=== PATIENT | female | born 1935 | race Caucasian/White ===

== ENCOUNTER → 2016-04-30 | Outpatient (CLI) | payer OTHER ==
[~2016-04-30] MED LIST: BIMA0.01 OP; CALC-51; CARB0.5D8; HYDR12.56 PO; LEVO-217; LOSA50TA54 PO; LUTE15CA; MONT1TAB3 PO; POLY150C4; SERT1TAB71 PO; SIMV10TA2 PO; UNKNOWN BP MED; ZOLP5TAB PO
--- NOTE | 2016-04-30 14:55 | MAMMOGRAPHY REPORT ---
BILATERAL DIGITAL SCREENING MAMMOGRAM WITH CAD: 04/30/2016 CLINICAL HISTORY: Routine screening. Patient has no complaints. TECHNIQUE: Bilateral CC and MLO views were obtained. Current study was also evaluated with a Comput er Aided Detection (CAD) system. COMPARISON: Comparison is made to exams dated: 04/27/2015 mammogram, 04/17/2013 mammogram, 04/26/2014 m ammogram, 04/07/2012 mammogram, 10/08/2011 mammogram, and 04/11/2011 mammogram - [facility]. BREAST COMPOSITION: There are scattered areas of fibroglandular density in both breasts. FINDINGS: There is stable focal asymmetry in the upper outer posterior right breast. Minimal vascul ar calcification in the breasts. No suspicious mass, architectural distortion or cluster of microca lcifications is seen. IMPRESSION: ACR BI-RADS CATEGORY 1: NEGATIVE There is no mammographic evidence of malignancy. A 1 year screening mammogram is recommended. The p atient will receive written notification of the results. Approximately 10% of breast cancers are not detected with mammography. A negative mammographic repor t should not delay biopsy if a clinically suggestive mass is present. Marian Reilly M.D. ay/:04/30/2016 13:02:20 [facility] Director: Domitila ENCARNACION(R)(M), [facility] letter sent: Normal 1/2 BI-RADS Code: ACR BI-RADS Category 1: Negative
== END | disposition home or self-care (01) ==
LOC: C.MAMM 11:13
PROVIDERS: ATTEND Internal Medicine
DX: Z12.31 Encounter for screening mammogram for malignant neoplasm of breast (principal)

== ENCOUNTER → 2016-06-12 | Outpatient (CLI) | payer OTHER ==
[2016-06-12 16:12] LABS: ALT/SGPT 23 U/L (12-78); BLOOD UREA NITROGEN 23 mg/dl (7-18); BUN/CREATININE RATIO 28.3 (10-20); CALCIUM 9.1 mg/dl (8.5-10.1); CARBON DIOXIDE 27 mmol/L (21-32); CHLORIDE 101 mmol/L (98-107); CHOLESTEROL 197 mg/dl (0-200); CREATININE 0.82 mg/dl (0.60-1.20); GLUCOSE 94 mg/dl (70-99); POTASSIUM 3.9 mmol/L (3.5-5.1); SODIUM 138 mmol/L (136-145); TRIGLYCERIDES 257 mg/dl (0-150); VERY LOW DENSITY LIPOPROT CALC 51 mg/dl
[2016-06-12 16:22] LABS: ALKALINE PHOSPHATASE 76 U/L (45-117); AST/SGOT 16 U/L (15-37); CHOLESTEROL/HDL RATIO 2.1; HDL CHOLESTEROL 92 mg/dl; LDL CHOLESTEROL CALCULATED 54 mg/dl; THYROID STIMULATING HORMONE 0.261 uIu/ml (0.300-4.500)
== END | disposition home or self-care (01) ==
LOC: C.LAB1850 14:57
PROVIDERS: ATTEND Internal Medicine
DX: E78.5 Hyperlipidemia, unspecified (principal); E03.9 Hypothyroidism, unspecified

== ENCOUNTER → 2016-07-18 | Outpatient (CLI) | payer OTHER | END | disposition home or self-care (01) | LOC: C.PAPS 10:11 | PROVIDERS: ATTEND Obstetrics & Gynecology | DX: Z12.4 Encounter for screening for malignant neoplasm of cervix (principal) ==

== ENCOUNTER → 2016-07-30 | Outpatient (CLI) | payer OTHER ==
[2016-07-30 14:39] LABS: BASO % 0.5 %; BASO ABS # 0.03 K/uL (0-0.2); COMPLETE YES; EOS % 3.8 %; HEMATOCRIT 40.8 % (37-47); IG% 0.2 %; LYMPH % 27.7 %; LYMPH ABS # 1.74 K/uL (1.2-3.4); MEAN CELL VOLUME 86.8 fL (80-100); MEAN CORPUSCULAR HEMOGLOBIN 30.4 pg (25-34); MEAN PLATELET VOLUME 10.8 fL (7.4-10.4); MONO % 7.2 %; NEUT % 60.6 %; PLATELET COUNT 242 K/uL (130-400); WHITE BLOOD COUNT 6.28 K/uL (4.8-10.8)
== END | disposition home or self-care (01) ==
LOC: C.LAB1850 13:07
PROVIDERS: ATTEND Internal Medicine
DX: E03.9 Hypothyroidism, unspecified (principal)

== ENCOUNTER → 2017-03-12 | Outpatient (CLI) | payer OTHER ==
[2017-03-12 17:50] LABS: ALT/SGPT 20 U/L (12-78); BLOOD UREA NITROGEN 23 mg/dl (7-18); BUN/CREATININE RATIO 27.5 (10-20); CALCIUM 9.3 mg/dl (8.5-10.1); CARBON DIOXIDE 29 mmol/L (21-32); CHLORIDE 101 mmol/L (98-107); CREATININE 0.85 mg/dl (0.60-1.20); GLUCOSE 94 mg/dl (70-99); POTASSIUM 3.9 mmol/L (3.5-5.1); SODIUM 137 mmol/L (136-145)
[2017-03-12 17:53] LABS: ALKALINE PHOSPHATASE 67 U/L (45-117); AST/SGOT 15 U/L (15-37)
== END | disposition home or self-care (01) ==
LOC: C.LAB1850 16:42
PROVIDERS: ATTEND Internal Medicine
DX: I10 Essential (primary) hypertension (principal); M81.0 Age-related osteoporosis without current pathological fracture

== ENCOUNTER → 2017-04-23 | Outpatient (CLI) | payer OTHER ==
[~2017-04-23] MED LIST changes: +CALC-51 PO; +DORZ2SOL20 OP; +HYDR12.55 PO; +LEVO88TA3 PO; +LOSA100T65 PO; +LUTE15CA PO; +OXYC-90 PO; +POLY150C4 PO; +SIMV-150 PO; +SNG10 PO; +TIMO0.5S2 OP; +TRAM-10 PO; +ZOLP5TAB6 PO
== END | disposition home or self-care (01) ==
LOC: C.MAMM 12:25
PROVIDERS: ATTEND Internal Medicine
DX: M81.0 Age-related osteoporosis without current pathological fracture (principal); M85.89 Other specified disorders of bone density and structure, multiple sites

== ENCOUNTER → 2017-05-01 | Outpatient (CLI) | payer OTHER ==
[~2017-05-01] MED LIST changes: -CALC-51 PO; -DORZ2SOL20 OP; -HYDR12.55 PO; -LEVO88TA3 PO; -LOSA100T65 PO; -LUTE15CA PO; -OXYC-90 PO; -POLY150C4 PO; -SIMV-150 PO; -SNG10 PO; -TIMO0.5S2 OP; -TRAM-10 PO; -ZOLP5TAB6 PO
--- NOTE | 2017-05-01 15:31 | MAMMOGRAPHY REPORT ---
BILATERAL DIGITAL SCREENING MAMMOGRAM TOMOSYNTHESIS WITH CAD: 05/01/2017 CLINICAL HISTORY: Routine screening. Patient has no complaints. TECHNIQUE: Breast tomosynthesis in addition to standard 2D mammography was performed. Current study was also evaluated with a Computer Aided Detection (CAD) system. COMPARISON: Comparison is made to exams dated: 04/30/2016 mammogram, 04/27/2015 mammogram, 04/26/2014 mamm ogram, 04/17/2013 mammogram, 04/07/2012 mammogram, and 04/04/2011 mammogram - [facility]. BREAST COMPOSITION: There are scattered areas of fibroglandular density in both breasts. FINDINGS: There is stable asymmetry in the far superior right breast on the MLO view. Minimal vascul ar calcification bilaterally. No suspicious mass, architectural distortion or cluster of microcalcif ications is seen. IMPRESSION: ACR BI-RADS CATEGORY 1: NEGATIVE There is no mammographic evidence of malignancy. A 1 year screening mammogram is recommended. The pa tient will receive written notification of the results. Approximately 10% of breast cancers are not detected with mammography. A negative mammographic report should not delay biopsy if a clinically suggestive mass is present. Marian Reilly M.D. ay/:05/01/2017 14:10:29 Health And Safety Specialist: Domitila MARES)(Bill), [facility] letter sent: Normal 1/2 BI-RADS Code: ACR BI-RADS Category 1: Negative
== END | disposition home or self-care (01) ==
LOC: C.MAMM 13:17
PROVIDERS: ATTEND Internal Medicine
DX: Z12.31 Encounter for screening mammogram for malignant neoplasm of breast (principal)

== ENCOUNTER → 2017-08-07 | Outpatient (CLI) | payer OTHER ==
[2017-08-07 16:40] LABS: BASO % 0.3 %; BASO ABS # 0.02 K/uL (0-0.2); EOS % 3.1 %; EOS ABS # 0.19 K/uL (0-0.5); HEMATOCRIT 40.6 % (37-47); HEMOGLOBIN 14.4 g/dL (12.0-16.0); IG# 0.01 K/uL (0.00-0.02); LYMPH % 21.1 %; MEAN CELL VOLUME 87.9 fL (80-100); MEAN CORPUSCULAR HEMOGLOBIN 31.2 pg (25-34); MEAN CORPUSCULAR HGB CONC 35.5 g/dl (32-36); MEAN PLATELET VOLUME 10.7 fL (7.4-10.4); MONO % 4.4 %; MONO ABS # 0.27 K/uL (0.11-0.59); NEUT % 70.9 %; NEUT ABS # 4.36 K/uL (1.4-6.5); PLATELET COUNT 218 K/uL (130-400); RED CELL DISTRIBUTION WIDTH CV 13.4 % (11.5-14.5); RED CELL DISTRIBUTION WIDTH SD 43.1 fL (36.4-46.3); WHITE BLOOD COUNT 6.15 K/uL (4.8-10.8)
[2017-08-07 17:06] LABS: ALBUMIN 3.5 gm/dl (3.4-5.0); ALT/SGPT 23 U/L (12-78); AST/SGOT 17 U/L (15-37); BLOOD UREA NITROGEN 29 mg/dl (7-18); CARBON DIOXIDE 27 mmol/L (21-32); CREATININE 0.98 mg/dl (0.60-1.20); GLUCOSE 102 mg/dl (70-99); SODIUM 132 mmol/L (136-145)
[2017-08-07 17:17] LABS: ALKALINE PHOSPHATASE 75 U/L (45-117); TOTAL PROTEIN 7.1 gm/dl (6.4-8.2)
== END | disposition home or self-care (01) ==
LOC: C.LAB1850 16:01
PROVIDERS: ATTEND Internal Medicine
DX: I10 Essential (primary) hypertension (principal); E03.9 Hypothyroidism, unspecified

== ENCOUNTER → 2017-08-19 | Outpatient (CLI) | payer OTHER | END | disposition home or self-care (01) | LOC: C.LAB1850 14:54 | PROVIDERS: ATTEND Internal Medicine Rheumatology | DX: M85.80 Other specified disorders of bone density and structure, unspecified site (principal); E61.8 Deficiency of other specified nutrient elements; Z86.39 Personal history of other endocrine, nutritional and metabolic disease ==

== ENCOUNTER → 2017-11-12 | Outpatient (CLI) | payer OTHER ==
--- NOTE | 2017-11-12 11:59 | DIAGNOSTIC IMAGING REPORT ---
L-SPINE MIN 4 VIEWS ROUTINE CLINICAL HISTORY: M56.5 back pain. Trauma. COMPARISON STUDY: June 2012 FINDINGS: There is a minor spinal curvature. There are multilevel degenerative changes present. No acute fractures or traumatic subluxations are visualized. There is progressive disc space narrowing at the L2-3 level. IMPRESSION: 1. No acute fractures or traumatic subluxations 2. Progressive degenerative change Electronically signed by: Ilan Singh M.D. 11/12/2017 11:58 AM Dictated Date/Time: 11/12/2017 11:57 AM
== END | disposition home or self-care (01) ==
LOC: C.RAD1850 11:25
PROVIDERS: ATTEND Internal Medicine
DX: M54.5 Low back pain (principal)

== ENCOUNTER 2017-11-29 12:54 | Emergency (ER) | payer OTHER ==
[~2017-11-29] VITALS: Ht 167.6 cm; Wt 65.2 kg
[2017-11-29 12:58] VITALS: TEMP 36.3; Ht 167.6 cm; Wt 65.2 kg
[2017-11-29] MEDS ORDERED: ACETAMINOPHEN 500 MG TAB PO STA (13:24)
[2017-11-29] MEDS ORDERED: LOSA100T65 PO (13:41)
[2017-11-29] MEDS ORDERED: DORZ2SOL20 OP (13:41)
[2017-11-29] MEDS ORDERED: LEVO88TA3 PO (13:41)
[2017-11-29] MEDS ORDERED: SIMV-150 PO (13:41)
[2017-11-29] MEDS ORDERED: HYDR12.55 PO (13:41)
[2017-11-29] MEDS ORDERED: SNG10 PO (13:41)
--- NOTE | 2017-11-29 14:23 | DIAGNOSTIC IMAGING REPORT ---
L SHOULDER MIN 2 VIEWS ROUTINE, L HUMERUS MIN 2 VIEWS ROUTINE CLINICAL HISTORY: injury, left shoulder pain, eval fx/dislocation COMPARISON STUDY: None. FINDINGS: Displaced and angulated fracture within the proximal shaft of the left humerus. This demonstrates up to 7 mm of lateral displacement. There appears to be a 4.1 cm permeative lesion within the proximal shaft of the left humerus. Therefore, this likely represents a pathologic fracture. No dislocation within the left shoulder. The left clavicle is intact. The mid to distal left humerus is intact. IMPRESSION: Displaced and angulated left proximal humerus fracture. There is a suggestion of a 4.1 cm permeative lesion within the proximal shaft of the left humerus at the site of fracture. Therefore, this is highly suspicious for a pathologic fracture. Electronically signed by: Samy Lopez M.D. 11/29/2017 2:22 PM Dictated Date/Time: 11/29/2017 2:18 PM
--- NOTE | 2017-11-29 14:31 | EMERGENCY ROOM VISIT NOTE ---
ED Visit Note First contact with patient: 13:13 CHIEF COMPLAINT: Shoulder pain HISTORY OF PRESENT ILLNESS: This 82-year-old female patient presents to the emergency department by private vehicle with her daughter complaining of pain in the left shoulder after lifting heavy crock pot around 12:30 PM today. Patient states she felt immediate pain in the shoulder and states it feels like it is dislocated. There is significant limitation of motion of the arm because of the pain. She did place the arm in a sling prior to coming to the ED. The pain is moderate, constant and increases with motion of the hand and arm. The patient states the pain is aching/throbbing and 10/10. The patient has taken 5 mg oxycodone at 1 PM and has had minimal relief of the pain. No previous significant shoulder disease or injury. No numbness or tingling. No neck or back pain. No chest pain or shortness of breath. No abdominal pain or nausea/ vomiting. No cough. REVIEW OF SYSTEMS: A 6 system review of systems was performed with positives and pertinent negatives in the HPI. ALLERGIES: Reviewed in chart, see below MEDICATIONS: Reviewed in chart, see below PMH: Hypertension, hyperlipidemia, hypothyroidism SOCIAL HISTORY: Lives at home. Denies tobacco use. PHYSICAL EXAM: Vital Signs: Reviewed nurse's notes, vital signs stable. GENERAL : Pleasant and cooperative, in no acute distress, but appears to be in pain, well-developed, well-nourished. MUSCULOSKELETAL: There is no deformity in the contour of the left shoulder, but there is bony deformity noted to the proximal humerus. There is no sulcus sign. There is tenderness over the proximal humerus and general shoulder. The patient's range of motion is severely limited due to pain. Supraspinatus strength 4/5. There is no clavicle tenderness. No tenderness of the humerus, elbow, wrist, or hand. Neon Sign Installer strength 5/5. Radial pulse 2+. NECK: No tenderness to palpation over the cervical spine. No pain with range of motion of the neck. HEART: Regular rate and rhythm without murmurs gallops or rubs. LUNGS: Clear to auscultation bilaterally without wheezes, rales or rhonchi. No accessory muscle use. No retractions. NEURO: The patient is alert and oriented to person, place, and time. Normal sensation to light and sharp touch. Capillary refill less than 2 seconds. EMERGENCY DEPARTMENT COURSE: I examined the patient. Differential diagnosis includes strain/sprain, ligamentous injury, fracture, dislocation, among others. Patient was given ice pack and Tylenol for pain. An X-ray of the left humerus and left shoulder was reviewed by myself and read by the radiologist and shows acute proximal humerus fracture with an adjacent bony lesion concerning for pathologic fracture. Patient was given an additional dose of oxycodone for pain management. She was placed in a shoulder immobilizer sling under my supervision, position was satisfactory and she was neurovascularly intact upon reassessment. Patient and her daughter were educated regarding splint care, pain management and pain medications, orthopedic and PCP follow-up , and return precautions should her symptoms worsen, they verbalized understanding. Patient was discharged home with her daughter in stable condition and ambulatory. Medication Reconciliation: I attest that I have personally reviewed the patient' s current medication list. Blood pressure screening: The patient was found to have an elevated blood pressure, which was felt to be situational. Patient was discussed with Dr. Bueno, who also evaluated the patient and agrees with my assessment and plan. Current/Historical Medications Scheduled Bimatoprost (Lumigan), 1 DROPS OP HS Dorzolamide Hcl-Timolol Maleat (Cosopt Oph), 1 DROP OP DIRECTED Hydrochlorothiazide (Hydrochlorothiazide), 12.5 MG PO DAILY Levothyroxine Sodium (Levothyroxine Sodium), 88 MCG PO DAILY Losartan Potassium (Cozaar), 100 MG PO DAILY Montelukast Sod (Montelukast Sodium), 10 MG PO DAILY Simvastatin (Simvastatin), 10 MG PO DAILY Scheduled PRN Oxycodone Ir (Roxicodone Ir), 1 TAB PO Q4H PRN for Severe Pain Allergies Coded Allergies: Streptomycin (Verified Allergy, Unknown, SWELLING, 05/27/09) Levothyroxine (Verified Adverse Reaction, Mild, ALLERGIC TO YELLOW DYE IN 0.1MG TAB, 05/27/09) Uncoded Allergies: CONTRAST DYE (Allergy, Mild, rash, trouble breathing, 12/20/14) Vital Signs Date Time Temp Pulse Resp B/P (MAP) Pulse Ox O2 Delivery O2 Flow Rate FiO2 11/29/17 17:07 61 18 157/84 98 11/29/17 14:55 62 18 162/91 97 Room Air 11/29/17 12:58 36.3 56 18 190/110 98 Room Air Medications Administered Medications (Trade) Dose Ordered Sig/Linda Route Start Time Stop Time Status Last Admin Dose Admin Acetaminophen (Tylenol Tab) 1,000 mg NOW STAT PO 11/29/17 13:24 11/29/17 13:26 DC 11/29/17 13:31 1,000 MG Oxycodone HCl (Roxicodone Immediate Rel Tab) 5 mg NOW STAT PO 11/29/17 15:08 11/29/17 15:09 DC 11/29/17 15:18 5 MG Departure Information Impression Primary Impression: Pathological fracture, left humerus, initial encounter for fracture Dispostion Home / Self-Care Condition GOOD Prescriptions Oxycodone Ir (Roxicodone Ir) 5 Mg Tab 1 TAB PO Q4H Y for Severe Pain, #30 TAB For Initial Treatment Prov: Terrie Brady, MARKETING PERFORMANCE ANALYST 11/29/17 Referrals RV. Hunt MD (PCP) Cleveland Giles, DO Patient Instructions ED Fx Upper Ext, ED Sling, [facility] Additional Instructions DISCHARGE INSTRUCTIONS & TREATMENT: You have been evaluated and treated in the emergency department today for your left shoulder pain. X-rays today show a fracture of your humerus bone. There is also a lesion in the bone that is considered abnormal, and will need to have follow-up by the orthopedic surgeon and your family doctor. Rest the arm in a sling until the pain subsides. Apply ice to the shoulder intermittently and frequently over the next 2 days to help reduce pain and swelling. Keep the arm elevated as much as possible to help reduce swelling. You have been prescribed oxycodone 5 mg tablets to be taken 1 tablet every 4-6 hours as needed for SEVERE pain. This is a narcotic. Do not drive, operate machinery, or drink alcohol while you are taking this medication, as it may make you drowsy. Narcotics can also cause constipation, you should take a daily [id number] stool softener such as Colace or Senokot to help prevent this. Ibuprofen 600 mg and Tylenol 650 mg every 6 hours if needed for pain. For best results, alternate between the Ibuprofen and Tylenol every 3-4 hours. Please follow-up with your primary care provider in the next few days for further evaluation of the lesion in your bone. Please keep your scheduled appointment with Dr. Giles, the orthopedic surgeon, for further management of your fracture. Please return to the emergency department for severe worsening swelling or pain that is not controlled with medication, loss of feeling or movement in the fingers, or any other concerns.
[2017-11-29] MEDS ORDERED: OXYCODONE HCL IR 5 MG TAB (IMMEDIATE RELEASE) PO STA (15:08)
--- NOTE | 2017-11-29 16:35 | EMERGENCY ROOM VISIT NOTE ---
ED Visit Note First contact with patient: 13:13 The patient was seen and examined with Terrie BARTON. I agree with the history, physical and findings. Please see the note for disposition and details.
[2017-11-29] MEDS ORDERED: OXYC-90 PO (16:48)
[2017-11-29 17:07] VITALS: BP 157/84; PULSE 61; O2SAT 98
== END 2017-11-29 17:07 | disposition home or self-care (01) ==
LOC: C.EDB 12:55 → C.EDD 17:07
DX: M84.422A Pathological fracture, left humerus, initial encounter for fracture (principal); X50.9XXA Other and unspecified overexertion or strenuous movements or postures, initial encounter; I10 Essential (primary) hypertension; E78.5 Hyperlipidemia, unspecified; E03.9 Hypothyroidism, unspecified; Z88.8 Allergy status to other drugs, medicaments and biological substances

== ENCOUNTER 2017-12-05 13:15 | Inpatient (IN) | payer OTHER ==
--- NOTE | 2017-12-03 10:29 | PAT Medication Instructions ---
Service Date Dec 03, 2017. Current Home Medication List Bimatoprost (Lumigan), 1 DROPS OP HS Dorzolamide Hcl-Timolol Maleat (Cosopt Oph), 1 DROP OP DIRECTED Hydrochlorothiazide (Hydrochlorothiazide), 12.5 MG PO DAILY Levothyroxine Sodium (Levothyroxine Sodium), 88 MCG PO DAILY Losartan Potassium (Cozaar), 100 MG PO DAILY Montelukast Sod (Montelukast Sodium), 10 MG PO DAILY Oxycodone Ir (Roxicodone Ir), 1 TAB PO Q4H PRN for Severe Pain Simvastatin (Simvastatin), 10 MG PO DAILY Medication Instructions For Your Scheduled Surgery - Hold the following medications the morning of surgery: Hydrochlorothiazide (Hydrochlorothiazide), 12.5 MG PO DAILY Losartan Potassium (Cozaar), 100 MG PO DAILY Montelukast Sod (Montelukast Sodium), 10 MG PO DAILY - Take the following medications the morning of surgery with a sip of water: Simvastatin (Simvastatin), 10 MG PO DAILY Oxycodone Ir (Roxicodone Ir), 1 TAB PO Q4H PRN for Severe Pain (okay to take up to 4 hours prior to surgery if needed) Levothyroxine Sodium (Levothyroxine Sodium), 88 MCG PO DAILY Dorzolamide Hcl-Timolol Maleat (Cosopt Oph), 1 DROP OP DIRECTED (if needed) - Take the following medications as scheduled the night before surgery: Oxycodone Ir (Roxicodone Ir), 1 TAB PO Q4H PRN for Severe Pain (if needed) Dorzolamide Hcl-Timolol Maleat (Cosopt Oph), 1 DROP OP DIRECTED (if needed) Bimatoprost (Lumigan), 1 DROPS OP HS If you have any questions please call us at [phone] or [phone] or [phone]
--- NOTE | 2017-12-03 11:32 | DIAGNOSTIC IMAGING REPORT ---
TWO VIEW CHEST CLINICAL HISTORY: Preoperative examination. FINDINGS: PA and lateral chest radiographs are compared to study dated 07/29/2013 and correlated with chest CT dated 08/11/2013. The heart is mildly enlarged and there is atherosclerotic calcification of the thoracic aorta. The pulmonary vasculature is noncongested. Chronic interstitial thickening is similar to previous. There is no airspace consolidation or pleural effusion. There is no pneumothorax. The skeletal structures are osteopenic. There is a distracted, angulated, and comminuted horizontal fracture through the left proximal humeral shaft. IMPRESSION: 1. Mild cardiac enlargement with no active disease in the chest. 2. A fracture of the left humeral shaft is identified. Electronically signed by: Delta Treviño M.D. 12/03/2017 11:31 AM Dictated Date/Time: 12/03/2017 11:29 AM
[2017-12-03 12:17] LABS: BASO % 0.3 %; BASO ABS # 0.02 K/uL (0-0.2); BLOOD UREA NITROGEN 24 mg/dl (7-18); CALCIUM 8.7 mg/dl (8.5-10.1); CARBON DIOXIDE 30 mmol/L (21-32); CREATININE 0.93 mg/dl (0.60-1.20); EOS ABS # 0.15 K/uL (0-0.5); GLUCOSE 91 mg/dl (70-99); HEMATOCRIT 36.8 % (37-47); HEMOGLOBIN 12.6 g/dL (12.0-16.0); IG# 0.02 K/uL (0.00-0.02); LYMPH % 15.6 %; LYMPH ABS # 1.19 K/uL (1.2-3.4); MEAN CELL VOLUME 89.3 fL (80-100); MEAN CORPUSCULAR HEMOGLOBIN 30.6 pg (25-34); MEAN CORPUSCULAR HGB CONC 34.2 g/dl (32-36); MEAN PLATELET VOLUME 11.1 fL (7.4-10.4); MONO % 7.6 %; MONO ABS # 0.58 K/uL (0.11-0.59); NEUT % 74.2 %; NEUT ABS # 5.67 K/uL (1.4-6.5); PLATELET COUNT 232 K/uL (130-400); POTASSIUM 3.7 mmol/L (3.5-5.1); RED CELL DISTRIBUTION WIDTH CV 13.4 % (11.5-14.5); RED CELL DISTRIBUTION WIDTH SD 43.3 fL (36.4-46.3); SODIUM 136 mmol/L (136-145); WHITE BLOOD COUNT 7.63 K/uL (4.8-10.8)
[2017-12-03 12:19] LABS: PTT PATIENT 24.6 SECONDS (21.0-31.0)
[2017-12-04 09:16] VITALS: BMI 22.0
[~2017-12-05] VITALS: Ht 167.6 cm; Wt 63.6 kg
[2017-12-05] VITALS (10 sets, daily range): BP systolic 127–203; BP diastolic 71–133; PULSE 64–99; TEMP 36.4–36.6; O2SAT 98–100; Ht 167.6 cm; Wt 63.6 kg
--- NOTE | 2017-12-05 09:57 | HISTORY & PHYSICAL EXAMINATION ---
DATE OF ADMISSION: 12/05/2017 CHIEF COMPLAINT: Pathologic fracture of the left proximal humerus. HISTORY OF PRESENT ILLNESS: Nguyen is a pleasant 82-year-old female who was lifting a crockpot about a week ago when she felt a snap in her left shoulder. She went to the Emergency Room. Radiographs demonstrated a transverse fracture of the left proximal humerus. She was placed in an arm sling and follow up in my office this week. Upon viewing the fracture and upon history, there is a high suspicion for pathologic fracture. She is following up with another provider for CT scan of her chest, abdomen, and pelvis. However, in the interim, we elected to proceed with an open reduction internal fixation of the left proximal humerus with biopsy. She does have a history of thyroid cancer, colon polyp, as well as skin cancer all back in 2016, but she says she was completely cleared and has had no effect since. PAST MEDICAL HISTORY: History of thyroid disease; hyperlipidemia; thyroid, colon, and skin cancer; glaucoma; osteopenia. SURGICAL HISTORY: Significant for skin cancer, colon cancer and thyroid cancer. ALLERGIES: None. MEDICATIONS: Synthroid, Singulair, hydrochlorothiazide, simvastatin, Pharex, losartan, Lumigan, timolol, Lutein, calcium and zolpidem. FAMILY HISTORY: Significant for appendiceal cancer. SOCIAL HISTORY: She is , rarely drinks, mildly active. She has 1 child who was with her in the office. REVIEW OF SYSTEMS: She complains of left arm pain. All other pertinent review of systems are negative. PHYSICAL EXAMINATION: GENERAL: She is awake, alert, and oriented x3. She is in no apparent distress. She is very pleasant. HEENT: Pupils equal, round, reactive to light. Extraocular motion intact. Oral mucosa is pink and moist. HEART: Regular rate per radial pulse. LUNGS: Carmencita symmetrically bilaterally with no audible breath sounds. ABDOMEN: Soft, nontender, nondistended. MUSCULOSKELETAL: On physical examination of the left shoulder, she is wearing a sling. She is unable to do any motion of her shoulder because of the pain. She does have an obvious gross deformity with anterior angulation of the fracture. Her radial, median, and ulnar nerves were checked and intact at her wrist. Her axillary nerve was not definitively checked. IMAGING: X-rays of the shoulder do show a possibly pathologic transverse fracture of the left proximal humerus. There is anterior angulation. I see no definitive evidence that this could be a primary sarcoma, but there are signs that it could be a metastatic carcinoma. IMPRESSION: Pathologic transverse left proximal humerus fracture. PLAN: We will proceed with open reduction internal fixation and biopsy of the humerus. She is scheduled to see another provider for an x-ray of the chest , abdomen and pelvis. It is also important to note that she has been having an increase of left shoulder pain over the past few months and she was already scheduled to see me in the office for that before she sustain a fracture. Postoperatively, she will be kept overnight in the hospital for postop medical management. KETAN
[~2017-12-05 13:15] MED LIST changes: +ACETAMINOPHEN 500 MG TAB PO SCH; -CALC-51; +CALC-51 PO; -CARB0.5D8; +CEFAZOLIN 2000MG IV PUSH 15 ML IV SCH; +FAMOTIDINE 20 MG TAB PO SCH; +GABAPENTIN 300 MG CAP PO SCH; +HYDR12.55 PO; -HYDR12.56 PO; +LACTATED RINGER'S 1000ML 1,000 ML IV SCH; +LACTATED RINGER'S 1000ML IV SCH; -LEVO-217; +LEVO88TA3 PO; +LOSA100T65 PO; -LOSA50TA54 PO; -LUTE15CA; +LUTE15CA PO; -MONT1TAB3 PO; +OXYC-90 PO; -POLY150C4; +POLY150C4 PO; -SERT1TAB71 PO; +SIMV-150 PO; -SIMV10TA2 PO; +SNG10 PO; +TIMO0.5S2 OP; -UNKNOWN BP MED; -ZOLP5TAB PO; +ZOLP5TAB6 PO
[2017-12-05] MEDS ORDERED: DEXAMETHASONE SOD INJ 4 MG/ML VIAL ONE ×2 (14:06→14:35)
[2017-12-05] MEDS ORDERED: BUPIVACAINE 0.25% 30 ML VIAL ONE (14:06)
[2017-12-05] MEDS ORDERED: EpINEphrine INJ 1MG/ML AMP 1 MG/ML AMP ONE (14:07)
[2017-12-05] MEDS ORDERED: BUPIVACAINE/EPINEPHRINE 0.5% MPF 1:200,000 30 ML VIAL ONE (14:25)
[2017-12-05] MEDS ORDERED: BACITRACIN 50000 UNIT VIAL ONE (14:25)
[2017-12-05] MEDS ORDERED: MIDAZOLAM HCL 1 MG/ML 2ML VIAL ONE (14:35)
[2017-12-05] MEDS ORDERED: ONDANSETRON INJ 2 MG/ML 2 ML VIAL ONE (14:35)
[2017-12-05] MEDS ORDERED: PROPOFOL IV EMULSION 10 MG/ML 20 ML VIAL ONE (14:35)
[2017-12-05] MEDS ORDERED: FENTANYL CITRATE INJ 50 MCG/1 ML 2 ML VIAL ONE (14:35)
[2017-12-05] MEDS ORDERED: EpHEDrine SULFATE 50MG/5ML SYR ONE ×2 (14:35→17:00)
[2017-12-05] MEDS ORDERED: LIDOCAINE HCL 2% 2 ML VIAL (20MG/ML) ONE (14:35)
--- NOTE | 2017-12-05 14:40 | History & Physical Bridge Note ---
H&P Re-Evaluation Bridge Note: I have examined the patient, reviewed the History & Physical and in the interval since the performance of the History & Physical I have noted the following changes of clinical significance: No changes noted
[2017-12-05] MEDS ORDERED: ATROPINE SULFATE 0.1 MG/ML 5ML SYR IV PRN (16:00)
[2017-12-05] MEDS ORDERED: EpHEDrine SULFATE INJ 50 MG/ML AMP IV PRN (16:00)
[2017-12-05] MEDS ORDERED: MEPERIDINE HCL 25 MG/ML CARP IV PRN (16:00)
[2017-12-05] MEDS ORDERED: ONDANSETRON INJ 2 MG/ML 2 ML VIAL IV PRN ×2 (16:00→17:45)
[2017-12-05] MEDS ORDERED: LABETALOL HCL IV 5 MG/ML 20ML IV PRN (16:00)
[2017-12-05] MEDS ORDERED: HYDROmorphone INJ 1 MG/ML SYR IV PRN (16:00)
--- NOTE | 2017-12-05 17:31 | DIAGNOSTIC IMAGING REPORT ---
L HUMERUS MIN 2 VIEW ROUTINE CLINICAL HISTORY: LEFT ORIF HUMERUS COMPARISON STUDY: Left humerus radiograph November 29, 2017. Fluoroscopy time: 34.8 seconds. FINDINGS: 2 fluoroscopic images demonstrate expected findings following internal fixation of the proximal diaphyseal fracture of the left humerus with plate and screws. Hardware is intact. Fracture alignment is markedly improved and near anatomic. Permeative appearance at the level of the fracture favors a pathologic fracture. IMPRESSION: Expected findings following internal fixation of a left humeral fracture which is likely pathologic. Electronically signed by: Preet aErly M.D. 12/05/2017 5:29 PM Dictated Date/Time: 12/05/2017 5:27 PM
--- NOTE | 2017-12-05 17:32 | [facility] Post Operative Brief Note ---
Immediate Operative Summary Operative Date Dec 05, 2017. Pre-Operative Diagnosis Pathologic transverse left proximal humerus fracture Post-Operative Diagnosis Pathologic transverse left proximal humerus fracture Procedure(s) Performed Left proximal humerus open reduction internal fixation and bone biopsy Surgeon Dr. Giles [employer] Curator Surgeon(s) Pete Paz PA-C Estimated Blood Loss 400cc Findings Consistent with Post-Op Diagnosis Specimens A. Pathologic left humerus fracture for bone biopsy (fresh specimen) Anesthesia Type General Regional
[2017-12-05] MEDS ORDERED: BISACODYL 10 MG SUPP PR PRN (17:45)
[2017-12-05] MEDS ORDERED: MAGNESIUM HYDROXIDE SUSP 30 ML UDC PO PRN (17:45)
[2017-12-05] MEDS ORDERED: METOCLOPRAMIDE HCL INJ 5 MG/ML 2 ML VIAL IV PRN (17:45)
[2017-12-05] MEDS ORDERED: NALOXONE HCL 0.4 MG/1 ML VIAL/CARP IV PRN (17:45)
[2017-12-05] MEDS ORDERED: CEFAZOLIN IV 1,000 MG in DEXTROSE 5% 50ML 50 ML IV SCH (17:45)
[2017-12-05] MEDS ORDERED: MoRPHine SULFATE 2 MG/ML CARP IV PRN (17:45)
[2017-12-05] MEDS ORDERED: ZOLPIDEM TARTRATE 5 MG TAB PO PRN (17:45)
[2017-12-05] MEDS ORDERED: SOD PHOSPHATE/SOD BIPHOSPHATE ENEMA 132 ML BTL PR PRN (17:45)
[2017-12-05] MEDS ORDERED: OXYCODONE HCL IR 5 MG TAB (IMMEDIATE RELEASE) PO PRN (17:45)
[2017-12-05] MEDS: FENTANYL CITRATE INJ 50 MCG/1 ML 2 ML VIAL IV PRN ×3 (17:56→18:20)
--- NOTE | 2017-12-05 18:16 | Anesthesiology Progress Note ---
Anesthesia Post Op Note Date & Time Dec 05, 2017 at 18:16 Vital Signs Pain Intensity: 3 Vital Signs Past 12 Hours Date Time Temp Pulse Resp B/P (MAP) Pulse Ox O2 Delivery O2 Flow Rate FiO2 12/05/17 18:10 60 16 164/91 98 Oxymask 5 12/05/17 18:00 63 16 180/94 100 Oxymask 10 12/05/17 17:50 78 16 147/102 99 Oxymask 10 12/05/17 17:43 36.0 71 16 164/96 98 Oxymask 10 12/05/17 14:03 36.6 68 18 154/89 (110) 98 Room Air Notes Mental Status: alert / awake / arousable, participated in evaluation Pt Amnestic to Procedure: Yes Nausea / Vomiting: adequately controlled Pain: adequately controlled Airway Patency, RR, SpO2: stable & adequate BP & HR: stable & adequate Hydration State: stable & adequate Anesthetic Complications: no major complications apparent
[2017-12-05] MEDS ORDERED: HydrALAZINE HCL 20 MG/ML VIAL ONE (19:04)
[2017-12-05] MEDS ORDERED: NURSING VERBAL MED ORDER ONE (19:08)
[2017-12-05] MEDS: POTASSIUM CHLORIDE INJ 10 MEQ in SODIUM CHLORIDE 0.9% 1000ML 1,000 ML IV SCH (20:07)
[2017-12-05] MEDS ORDERED: SIMVASTATIN 10 MG TAB PO SCH (21:00)
[2017-12-05] MEDS ORDERED: BIMATOPROST 0.01% OP SOLN 2.5 ML BTL OP SCH (21:00)
[2017-12-05] MEDS: DOCUSATE SODIUM 100 MG CAP PO SCH (21:00)
[2017-12-05] MEDS ORDERED: SENNA 8.6 MG TAB PO SCH (21:00)
[2017-12-05] MEDS ORDERED: MONTELUKAST SOD 10 MG TAB PO SCH (21:00)
[2017-12-05] MEDS: ACETAMINOPHEN IV 1,000 MG in EMPTY BAG 0 ML IV SCH (22:14)
--- NOTE | 2017-12-05 22:39 | Medical Consult ---
Consultation Date of Consultation: Dec 05, 2017. Attending Physician: Cleveland Giles DO Reason for Consultation: Hypertension History of Present Illness The patient is an 82 year old female with a past medical history of hypertension , hypothyroidism, and hyperlipidemia that presents for ORIF with orthopaedic surgery after fracturing her left humerus 1 week ago. The patient has tolerated her surgery well and during the initial post-operative period in the PACU the patient experienced a hypertensive episode with a SBP of > 200 and was given 20mg IV Hydralazine. Her blood pressure improved afterwards and has been stable into tonight. The patient is normally on HCTZ and Cozaar although did not take her morning medications. The patient on evaluation denies any headaches, shortness of breath, chest pain, pain her left arm/shoulder, palpitations, fever , chills, sweats, numbness or tingling. There is a mention in the not of Dr. Lynn that her PCP has scheduled the patient from further imaging due to concern regarding a pathologic fracture. Past Medical/Surgical History Medical Problems: (1) Pathological fracture, left humerus, initial encounter for fracture Status: Acute Social History Smoking Status: Never Smoker Allergies Coded Allergies: Iodinated Diagnostic Agents (Verified Allergy, Unknown, CONTRAST DYE- SWOLLEN ALL OVER, 12/04/17) Lisinopril (Unverified Allergy, Unknown, COUGH, 12/04/17) Procaine (Verified Allergy, Unknown, SWELLING, RASH, FEVER, 12/04/17) REACTION NOTED "MANY YEARS AGO" WITH DENTAL PROCEDURE. PER PATIENT'S DAUGHTER, NO REACTION WITH LIDOCAINE. PER MEDICAL RECORD Streptomycin (Verified Allergy, Unknown, SWELLING, 12/04/17) PER MEDICAL RECORD Yellow Dye (Verified Allergy, Unknown, SWOLLEN ALL OVER, 12/04/17) Current Inpatient Medications Current Inpatient Medications Medications (Trade) Dose Ordered Sig/Linda Route Start Time Stop Time Status Last Admin Dose Admin Lactated Ringer's 1,000 ml @ 15 mls/hr Q24H IV 12/05/17 06:00 12/06/17 05:59 12/05/17 13:55 15 MLS/HR Lactated Ringer's 1,000 ml @ 60 mls/hr [id number] IV 12/05/17 06:00 12/05/17 22:39 Levothyroxine Sodium (Synthroid Tab) 88 mcg MoTuWeThFrSa@0600 PO 12/06/17 06:00 01/05/18 05:59 Losartan Potassium (coZAAR TAB) 100 mg QAM PO 12/06/17 09:00 01/05/18 08:59 Montelukast Sodium (Singulair Tab) 10 mg HS PO 12/05/17 21:00 01/04/18 20:59 Polysaccharide Iron Complex (Niferex-150 w/ Vit C Cap) 150 mg DAILY PO 12/06/17 09:00 01/05/18 08:59 Simvastatin (Zocor Tab) 10 mg QPM PO 12/05/17 21:00 01/04/18 20:59 Timolol Maleate (Timoptic-Xe 0.5% Oph Soln) 1 drops QAM OP 12/06/17 09:00 01/05/18 08:59 Zolpidem Tartrate (Ambien Tab) 5 mg HS PRN PO 12/05/17 17:45 01/04/18 17:44 Bimatoprost (Lumigan 0.01%) 1 drops HS OP 12/05/17 21:00 01/04/18 20:59 12/05/17 20:40 1 DROPS Hydrochlorothiazide (Hydrochlorothiazide Tab) 12.5 mg QAM PO 12/06/17 09:00 01/05/18 08:59 Metoclopramide HCl (Reglan Inj) 10 mg Q6H PRN IV 12/05/17 17:45 01/04/18 17:44 12/05/17 19:51 10 MG Ondansetron HCl (Zofran Inj) 4 mg Q6H PRN IV 12/05/17 17:45 01/04/18 17:44 Potassium Chloride 10 meq/ Sodium Chloride 1,005 ml @ 100 mls/hr Q10H3M IV 12/05/17 19:30 01/04/18 19:29 12/05/17 20:07 100 MLS/HR Oxycodone HCl (Roxicodone Immediate Rel Tab) `1-2 TABS FOR PAIN `1 TAB... Q4H PRN PO 12/05/17 17:45 12/19/17 17:44 Acetaminophen 1000 mg/Empty Bag 100 ml @ 400 mls/hr Q8 IV 12/05/17 22:00 12/06/17 21:59 Morphine Sulfate (MoRPHine SULFATE INJ) 2 mg Q2HWA PRN IV 12/05/17 17:45 12/19/17 17:44 Naloxone HCl (Narcan Inj) 0.1 mg Q2M PRN IV 12/05/17 17:45 01/04/18 17:44 Magnesium Hydroxide (Milk Of Magnesia Susp) 30 ml Q6H PRN PO 12/05/17 17:45 01/04/18 17:44 Bisacodyl (Dulcolax Supp) 10 mg DAILY PRN ID 12/05/17 17:45 01/04/18 17:44 Sodium Biphosphate/ Sodium Phosphate (Fleet Enema) 132 ml DAILY PRN ID 12/05/17 17:45 01/04/18 17:44 Senna (Senokot Tab) 17.2 mg HS PO 12/05/17 21:00 01/04/18 20:59 Docusate Sodium (coLACE CAP) 100 mg BID PO 12/05/17 21:00 01/04/18 20:59 Cefazolin Sodium 1000 mg/Syringe 7.5 ml @ 2.5 mls/min Q8H IV 12/06/17 00:00 12/06/17 08:02 Review of Systems Constitutional: No fever, No chills, No sweats, No weight loss, No weakness, No fatigue Respiratory: No cough, No shortness of breath, No dyspnea on exertion, No dyspnea at rest Cardiovascular: No chest pain, No palpitations Abdomen: No pain, No nausea, No vomiting, No diarrhea, No constipation Genitourinary - Female: No dysuria, No urinary frequency, No urinary urgency Neurologic: No numbness/tingling, No vertigo Endocrine: + fatigue Physical Exam Date Time Temp Pulse Resp B/P (MAP) Pulse Ox O2 Delivery O2 Flow Rate FiO2 12/05/17 21:45 74 16 151/91 (111) 99 2.0 12/05/17 20:59 68 16 157/92 (113) 100 3.0 12/05/17 19:45 82 16 127/84 (98) 99 2.0 12/05/17 19:34 77 148/91 (110) 99 2.0 12/05/17 18:45 36.4 98 14 185/115 (138) 99 Oxymask 3.0 12/05/17 18:45 99 Oxymask 3.0 12/05/17 18:30 63 16 162/86 98 Oxymask 3 12/05/17 18:20 36.3 62 16 172/95 98 Oxymask 3 12/05/17 18:10 60 16 164/91 98 Oxymask 5 12/05/17 18:00 63 16 180/94 100 Oxymask 10 12/05/17 17:50 78 16 147/102 99 Oxymask 10 12/05/17 17:43 36.0 71 16 164/96 98 Oxymask 10 12/05/17 14:03 36.6 68 18 154/89 (110) 98 Room Air General Appearance: WD/WN, no apparent distress Head: normocephalic, atraumatic Eyes: normal inspection, sclerae normal Neck: supple, no carotid bruits Respiratory/Chest: chest non-tender, lungs clear, normal breath sounds Cardiovascular: regular rate, rhythm, no edema, no gallop, no murmur Abdomen/GI: normal bowel sounds, non tender, soft Extremities/Musculoskelatal: no calf tenderness, no pedal edema, + pertinent finding (Left arm in sling and dressing C/D/I) Neurologic/Psych: hyperbaric tech II-XII nml as tested, no motor/sensory deficits, alert, normal mood/affect, oriented x 3 Assessment & Plan Day #O S/p ORIF of L Humerus - X-Ray: Expected findings following internal fixation of a left humeral fracture which is likely pathologic. - Pain well controlled at this time --> PRN Oxycodone if needed Hypertension - currently well controlled this evening at time of evaluation after receiving significant dose of Hydralazine in the ED - Continue home Cozaar and HCTZ - If has repeat episode of HTN this evening will give home medications early HLD - Continue home Statin Hypothyroidism - Continue home Synthroid Insomina - Continue home Ambien DVT - SCDs Code Status - Full Resuscitation Resident Tracking Resident Involvement: Resident Care Provided Care Provided: Adult Hospital Medicine History Patient seen and examined, chart reviewed, case discussed with Dr. Rm and I agree with his assessment and plan as documented above. Patient is an 82yo female with history of HTN and Hypothyroidism s/p ORIF of left humerus today by Dr. Lynn. Procedure well tolerated. Patient with elevated blood pressure post-operatively with SBP > 200mmHg. She was administered 20mg of IV Hydralazine with significant drop in BP. She is presently feeling well, +nausea On exam she is afebrile, BP ranging SBP 127-185 / DBP of 84-115. Gen: NAD, nontoxic Heart: +S1/S2, regular, no m/r/g Lungs: CTA Abd: soft, NT/ND Ext: warm, no edema Neuro: no deficits Labs and images reviewed. 82yo female s/p ORIF left humerus with post-operative hypertension. Most llikely secondary to hypersympathetic state, IVF and missing AM medications -Control of pain and nausea per primary team -Resume Cozaar 100mg po daily and HCTZ 12.5mg po daily -Continue to monitor. Would avoid large doses of IV hydralazine in elderly patients as they may cause precipitous and prolonged drop in blood pressure -Remainder of plan as above
[2017-12-05] MEDS: CEFAZOLIN IV 1,000 MG in SYRINGE 0 ML IV SCH (23:32)
--- NOTE | 2017-12-05 23:38 | OPERATIVE REPORT ---
DATE OF OPERATION: 12/05/2017 PREOPERATIVE DIAGNOSIS: Pathologic left proximal humerus fracture. POSTOPERATIVE DIAGNOSIS: Same. PROCEDURE: Open reduction and internal fixation, left proximal humerus with a biopsy. SURGEON: Cleveland Giles DO. OXYACETYLENE TORCH OPERATOR: Christos Paz PA-C, whose assistance was necessary for retraction and closure. ANESTHESIA: General. COMPLICATIONS: None. CONDITION: Stable to PACU. INDICATIONS: Nguyen is a pleasant 82-year-old female who had 3 different types of cancer back in 2012. They were all treated, and she assumed she was cancer free. She then began having some left shoulder pain. She made an appointment to see me for generalized shoulder pain, and then she went to lift a crock pot a couple of days ago and felt a snap in her shoulder. She went to the Emergency Room where radiographs demonstrated a transverse fracture of the proximal humerus. There were concerns that it may be pathologic. She was placed in an arm sling and presented to my office. There was severe angulation of the fracture, and her and her daughter would like to proceed with ORIF with a biopsy. DESCRIPTION OF PROCEDURE: On December 05, 2017, she arrived at [facility] for the above procedure. She was seen in the preoperative holding area, and the operative extremity was identified and signed. She was given a preoperative antibiotic and a left interscalene nerve block. She was taken back to the operating room and laid on table in supine position and put under general anesthesia. The left shoulder and arm were then prepped and draped in sterile fashion. Timeout was done. The patient's operative extremity was properly identified. An extended deltopectoral approach was used. Dissection was taken down through the fascia, and the deltoid was retracted laterally, and the conjoined structures were retracted medially. The fracture was exposed. The fracture lines were not very well defined. Tissue was taken from the intramedullary canal with use of a curette. It was taken both proximally and distally. I spent time ensuring I got a complete biopsy of the fractured area. Clamps were used to hold the fracture in acceptable alignment, and then a Synthes long proximal humeral locking plate was applied. Compression screws were placed both proximally and distally to hold the plate in place, and I was happy with the overall alignment on fluoroscopy. Locking screws were placed both proximally and distally. The compression screws were then exchanged for locking screws to give added stability. She had a rather weak bone quality. The wound was then irrigated with 3 L normal saline solution with bacitracin. Final fluoroscopic images were taken and saved. The hemostasis was obtained. The skin was closed with 2-0 Vicryl, 3-0 V-Loc suture, and angelica. She was then placed in a soft dressing, extubated, transferred to a hospital bed, and taken to the postanesthesia care unit in stable condition. She tolerated the procedure well. I attest to the content of the Intraoperative Record and any orders documented therein. Any exception s are noted below.
[2017-12-06 03:10] VITALS: BP 100/67; PULSE 82; TEMP 36.8; O2SAT 98
[2017-12-06] MEDS: POTASSIUM CHLORIDE INJ 10 MEQ in SODIUM CHLORIDE 0.9% 1000ML 1,000 ML IV SCH (05:38)
[2017-12-06] MEDS: ACETAMINOPHEN IV 1,000 MG in EMPTY BAG 0 ML IV SCH (05:39)
[2017-12-06] MEDS ORDERED: LEVOTHYROXINE 88 MCG TAB PO SCH (06:00)
[2017-12-06 06:12] LABS: HEMATOCRIT 31.7 % (37-47); HEMOGLOBIN 10.6 g/dL (12.0-16.0); MEAN CELL VOLUME 90.3 fL (80-100); MEAN CORPUSCULAR HEMOGLOBIN 30.2 pg (25-34); MEAN CORPUSCULAR HGB CONC 33.4 g/dl (32-36); MEAN PLATELET VOLUME 10.1 fL (7.4-10.4); PLATELET COUNT 209 K/uL (130-400); RED CELL DISTRIBUTION WIDTH CV 13.5 % (11.5-14.5); RED CELL DISTRIBUTION WIDTH SD 44.3 fL (36.4-46.3)
[2017-12-06 06:38] LABS: CALCIUM 7.7 mg/dl (8.5-10.1); CREATININE 0.74 mg/dl (0.60-1.20); POTASSIUM 4.3 mmol/L (3.5-5.1)
[2017-12-06 07:31] VITALS: BP 104/70; PULSE 69; TEMP 37; O2SAT 96
[2017-12-06] MEDS: DOCUSATE SODIUM 100 MG CAP PO SCH (08:41)
[2017-12-06] MEDS: CEFAZOLIN IV 1,000 MG in SYRINGE 0 ML IV SCH (08:44)
[2017-12-06] MEDS ORDERED: TIMOLOL GFS 0.5% OPH SOLN 74 DROPS/5 ML BTL OP SCH (09:00)
[2017-12-06] MEDS ORDERED: LUTEIN ZEAXANTHIN PO SCH (09:00)
[2017-12-06] MEDS ORDERED: LOSARTAN POTASSIUM 50 MG TAB PO SCH (09:00)
[2017-12-06] MEDS ORDERED: IRON COMPLEX POLYSACCHARIDE W/VIT C 150 MG CAP PO SCH (09:00)
[2017-12-06] MEDS ORDERED: HYDROCHLOROTHIAZIDE 25 MG TAB PO SCH (09:00)
[2017-12-06] MEDS ORDERED: TRAM-10 PO (09:08)
--- NOTE | 2017-12-06 09:09 | Discharge Instructions ---
Discharge Instructions Date of Service Dec 06, 2017. Admission Reason for Admission: Left Proximal Humerus Fracture Discharge Discharge Diagnosis / Problem: Plate and Screws Left Humerus Discharge Goals Goal(s): Decrease discomfort Activity Recommendations Activity Limitations: as noted below . Instructions / Follow-Up Instructions / Follow-Up may remove dressing and shower 5 days from the day of surgery, sling for 6 weeks, f/u with Dr Giles in 2 weeks, f/u with your PCP on Saturday Current Hospital Diet Patient's current hospital diet: Regular Diet Discharge Diet Recommended Diet: Regular Diet Procedures Procedures Performed: Left proximal humerus open reduction internal fixation and bone biopsy Pending Studies Studies pending at discharge: no Medical Emergencies . Who to Call and When: Medical Emergencies: If at any time you feel your situation is an emergency, please call 911 immediately. . Non-Emergent Contact Non-Emergency issues call your: Surgeon Call Non-Emergent contact if: wound has increased drainage, wound has increased redness . "Provider Documentation" section prepared by Cleveland Giles. .
--- NOTE | 2017-12-06 10:17 | PROGRESS NOTE ---
DATE: 12/06/2017 CHIEF COMPLAINT: Status post ORIF, left pathologic humerus fracture, postop day #1. PROGRESS: Nguyen was seen and examined at bedside today. Overall, she is doing very well. She is not having much pain in the arm at all. She is happy with her progress. She was seen by medicine yesterday and her granddaughter is with her at bedside. Her granddaughter speaks fluent Maltese. PHYSICAL EXAMINATION: LEFT SHOULDER: The dressing is clean and dry. There is some ecchymosis in the area. She is wearing her sling as instructed. The radial, median and ulnar nerves were checked and intact. The axillary nerve was not checked yet. LABORATORY DATA: She has an H and H today of 10.6 and 31.7. Her glucose is 102. Her vital signs were all stable on room air. She is voiding on her own. IMPRESSION: Status post open reduction internal fixation, left pathologic proximal humerus fracture, postop day #1. PLAN: At this point, she is doing fairly well with her arm. She will be discharged to home later today after seen by physical therapy. She is going to be in a sling for about 6 weeks. She is scheduled to follow up with her primary care physician on Saturday to discuss what to do about the possible pathologic lesion. I will see her in my office in 2 weeks for staple removal.
[2017-12-06 12:47] VITALS: BP 104/70; PULSE 69; TEMP 37; O2SAT 96
--- NOTE | 2017-12-06 18:56 | DISCHARGE SUMMARY ---
CHIEF COMPLAINT: Left pathologic proximal humerus fracture. PROCEDURE: ORIF of the left proximal humerus on 12-05-[address] Cleveland Giles. DISCHARGE INSTRUCTIONS: 1. Tramadol 50 mg every 6 hours as needed for pain. 2. Lumigan drops at night. 3. Hydrochlorothiazide 12.5 mg daily. 4. Synthroid 88 mcg daily. 5. Cozaar 100 mg daily. 6. Lutein 1 tab daily. 7. Singulair 10 mg daily. 8. Iron 150 mg daily. 9. Simvastatin 10 mg daily. 10. Timolol 1 drop daily. 11. Ambien 1 tab at night. 12. Follow up with Dr. Giles in 2 weeks. 13. Left arm sling for 6 weeks. 14. Follow up with primary care physician to discuss course of treatment on Saturday. INDICATIONS: Nguyen is a pleasant 82-year-old female who was lifting a crockpot a couple days ago when she felt a snap in her left arm. She has been having a several month history of increasing left shoulder pain and had an appointment to see me for that anyway. She went to the Emergency Room and radiographs demonstrated a transverse fracture of the proximal humerus. There were concerns of pathologic fracture. She presented to my office. After discussions with her and her family, we elected to proceed with open reduction internal fixation with open biopsy. On 12/05/2017, she arrived at [facility] and underwent an open reduction internal fixation without complication. She had a general anesthetic and a left interscalene nerve block. Postoperatively, she was placed in an arm sling and discharged to general orthopedic floor. Her hospital course was relatively uneventful. On postop day #1, her H&H was stable at 10.6 and 31.7. She was having problems with hypertension postoperatively. She was given hydralazine by the anesthesiologist, but her blood pressure continued to run high. She was then seen by the medicine team. They thought it was more of a sympathetic response. They treated her with her standard medications the following morning. Her blood pressure did return to normal levels. She was able to participate well with physical therapy and after discussions with her and her family, she was discharged to home. She is going to follow up with her primary care physician on Saturday about course of treatment.
== END 2017-12-06 13:55 | disposition home or self-care (01) | DRG 479 ==
LOC: C.ACU 13:15 → C.3E 17:37 → ENRESERV 18:11
PROVIDERS: ADMIT Orthopaedic Surgery; ATTEND Orthopaedic Surgery
PROC: 0PSG04Z Reposition Left Humeral Shaft with Internal Fixation Device, Open Approach (ICD-10-PCS; principal; 2017-12-05 07:30)
PROC: 0PB Upper Bones, Excision (ICD-10-PCS; principal; 2017-12-05 07:30)
DX: M84.422A Pathological fracture, left humerus, initial encounter for fracture (principal); M85.80 Other specified disorders of bone density and structure, unspecified site; X50.0XXA Overexertion from strenuous movement or load, initial encounter; I10 Essential (primary) hypertension; E89.0 Postprocedural hypothyroidism; E78.5 Hyperlipidemia, unspecified; G47.00 Insomnia, unspecified; J45.909 Unspecified asthma, uncomplicated; H40.9 Unspecified glaucoma; Z85.850 Personal history of malignant neoplasm of thyroid; Z85.828 Personal history of other malignant neoplasm of skin; Z85.038 Personal history of other malignant neoplasm of large intestine; Z79.899 Other long term (current) drug therapy; Z91.041 Radiographic dye allergy status; Z88.1 Allergy status to other antibiotic agents; Z88.4 Allergy status to anesthetic agent; Z88.8 Allergy status to other drugs, medicaments and biological substances; Z80.0 Family history of malignant neoplasm of digestive organs

== ENCOUNTER → 2017-12-12 | Outpatient (CLI) | payer OTHER ==
[~2017-12-12] MED LIST changes: -ACETAMINOPHEN 500 MG TAB PO SCH; -CEFAZOLIN 2000MG IV PUSH 15 ML IV SCH; -FAMOTIDINE 20 MG TAB PO SCH; -GABAPENTIN 300 MG CAP PO SCH; -LACTATED RINGER'S 1000ML 1,000 ML IV SCH; -LACTATED RINGER'S 1000ML IV SCH; -OXYC-90 PO; +TRAM-10 PO
--- NOTE | 2017-12-12 12:58 | DIAGNOSTIC IMAGING REPORT ---
CT SCAN OF THE ABDOMEN AND PELVIS WITHOUT IV CONTRAST CLINICAL HISTORY: Metastatic renal cell carcinoma. COMPARISON STUDY: Chest CT dated 08/11/2013. TECHNIQUE: CT scan of the abdomen and pelvis is performed from the lung bases to the proximal femora. Images are reviewed in the axial, sagittal, and coronal planes. IV contrast was not administered for this examination due to a contrast allergy. Note that the examination is suboptimal without IV contrast. The examination is also degraded by streak artifact from the left arm which could not be elevated above the abdomen. A dose lowering technique was utilized adhering to the principles of ALARA. CT DOSE: 650.12 mGycm FINDINGS: Lung bases: The heart is normal in size and without pericardial effusion. The coronary arteries are densely calcified. There are 3 pulmonary nodules at the left lung base measuring up to 3 mm. These have been present from 2013 and are of doubtful significance. No airspace consolidation or pleural effusion is identified. There is bibasilar scarring/atelectasis. Liver: The unenhanced liver is normal in size, contour, and attenuation. There is no intrahepatic biliary ductal dilatation. Gallbladder: Unremarkable. Spleen: Normal in size and attenuation. Pancreas: The unenhanced pancreas is grossly unremarkable. Adrenal glands: Unremarkable. Kidneys: The unenhanced kidneys are atrophic and without hydronephrosis. There are no renal calculi identified. A 14 mm exophytic cyst arises from the upper pole of the left kidney. Abdominal vasculature: The abdominal aorta is normal in course and caliber noting advanced atherosclerotic calcification. Bowel: There are postoperative changes from sigmoid colon resection with colocolonic anastomosis. No bowel obstruction is seen mild colonic fecal retention is observed. The appendix is well-visualized and normal. Peritoneum: There is no intraperitoneal free air or abdominal ascites. Lymphadenopathy: None. Pelvic viscera: The bladder, uterus, and adnexa are normal as visualized. Skeletal structures: The skeletal structures are osteopenic. Lumbosacral spondylosis is observed. No lytic or blastic lesions are seen. IMPRESSION: 1. There is no evidence of metastatic disease in the abdomen or pelvis on this unenhanced examination. 2. No acute infectious or inflammatory findings are identified. 3. There are postoperative changes from sigmoid colon resection with colocolonic anastomosis. No bowel obstruction is seen. Electronically signed by: Delta Treviño M.D. 12/12/2017 12:56 PM Dictated Date/Time: 12/12/2017 12:48 PM
== END | disposition home or self-care (01) ==
LOC: C.CTS 12:18
PROVIDERS: ATTEND Internal Medicine
DX: C64.9 Malignant neoplasm of unspecified kidney, except renal pelvis (principal); C79.9 Secondary malignant neoplasm of unspecified site; Z91.041 Radiographic dye allergy status